=== PATIENT | female | born 1995 ===

== ENCOUNTER 2017-06-21 01:23 | Emergency (ER) | payer OTHER ==
[2017-06-21 04:43] LABS: ABS Basophils 0 10^3/ul (0-0.2); ABS Eosinophils 0 10^3/ul (0-0.6); ABS Lymphocytes 0.8 10^3/ul (1.0-4.8); ABS Monocytes 0.4 10^3/ul (0-0.8); ABS Neutrophils 12.4 10^3/ul (1.5-7.7); ABS Nucleated RBC 0 10^3/ul; Eosinophil % 0.4 % (0-6); Hematocrit 40 % (35-47); Hemoglobin 13.3 g/dl (12.0-16.0); Lymphocyte % 5.5 % (25-47); Mean Corpuscular HGB Conc 34 g/dl (31-36); Mean Corpuscular Hemoglobin 29 pg (27-31); Mean Corpuscular Volume 87 fL (80-97); Mean Platelet Volume 8 um3 (7.4-10.4); Nucleated Red Blood Cells % 0; Platelet Count 242 10^3/ul (150-450); Red Blood Count 4.58 10^6/ul (4.0-5.4); Red Cell Distribution Width 13 % (10.5-15); White Blood Count 13.7 10^3/ul (3.5-10.8)
[2017-06-21 05:02] LABS: EGFR Non-African American 135.2 (>60)
[2017-06-21 05:13] LABS: Urine Appearance Cloudy; Urine Blood Negative (Negative); Urine Color Yellow; Urine Ketones 2+ (Negative); Urine Protein 1+(30 mg/dL) (Negative); Urine Specific Gravity 1.027 (1.010-1.030); Urine Urobilinogen Negative (Negative)
[2017-06-21] MEDS ORDERED: Ciprofloxacin TAB* 500 MG PO ONE (05:38)
[2017-06-21] MEDS ORDERED: metroNIDAZOLE TAB* 250 MG PO ONE (05:39)
[2017-06-21] MEDS ORDERED: NS 0.9% 1000 ML* 2,000 ML IV ONE (05:42)
[2017-06-21 07:35] VITALS: BP 102/64
--- NOTE | 2017-06-25 21:08 | ED ---
Rodrick Arredondo Tecjoon, scribed for Nathan Brewster MD on 06/21/17 at 0524 . GI/ HPI - HPI Summary HPI Summary: This patient is a 21 year old female [facility] friends with a chief complaint of nausea, vomiting, diarrhea since 3 hours ago. Patient states that she thinks it may be food poisoning as sx appeared suddenly around 30 minutes after eating. Afterwards, patient started vigorously vomiting, patient states out of both ends. After coming to ED, sx have been alleviated and she feels slightly better. The pain is rated 3/10 in severity. Symptoms aggravated by nothing. Symptoms alleviated by nothing. Patient additionally reports abd discomfort - History of Current Complaint Chief Complaint: EDNauseaVomitDiarrh Stated Complaint: VOMITING Hx Obtained From: Patient Onset/Duration: Started Hours Ago, Still Present Timing: Constant Severity: Severe Current Severity: Mild Pain Intensity: 3 - /10 Location of Pain: Diffuse Pain Characteristics: Other: - "discomfort" Associated Signs and Symptoms: Positive: Other: - abd pain Aggravating Factor(s): Nothing Alleviating Factor(s): Nothing - Allergy/Home Medications Allergies/Adverse Reactions: Allergies Allergy/AdvReac Type Severity Reaction Status Date / Time No Known Allergies Allergy Verified 06/21/17 01:33 PMH/Surg Hx/FS Hx/Imm Hx Previously Healthy: Yes Opthamlomology History: Denies: Hx Legally Blind EENT History: Denies: Hx Deafness Infectious Disease History: No Infectious Disease History: Reports: Traveled Outside the [place] in Last 30 Days - [place] - Social History Alcohol Use: Rare Substance Use Type: Reports: None Smoking Status (MU): Never Smoked Tobacco Review of Systems Negative: Fever Positive: Abdominal Pain, Vomiting, Diarrhea, Nausea All Other Systems Reviewed And Are Negative: Yes Physical Exam - Summary Physical Exam Summary: Appearance: Well-appearing, Well-nourished Skin: Warm Eyes: Normal ENT: Normal Neck: Supple, nontender Respiratory: Clear to auscultation Cardiovascular: Normal S1, S2. No murmurs. Normal distal pulses in tibial and radial bilaterally. Abdomen: Soft, nontender Musculoskeletal: Normal, Strength/ROM Intact Neurological: Normal, A&Ox3 Psychiatric: Normal Triage Information Reviewed: Yes Vital Signs On Initial Exam: Initial Vitals Temp Pulse Resp BP Pulse Ox 98.3 F 112 16 110/69 100 06/21/17 01:33 06/21/17 01:33 06/21/17 01:33 06/21/17 01:33 06/21/17 01:33 Vital Signs Reviewed: Yes Diagnostics - Vital Signs Vital Signs Temp Pulse Resp BP Pulse Ox 06/21/17 01:33 98.3 F 112 16 110/69 100 - Laboratory Lab Results: Lab Results 06/21/17 06/21/17 06/21/17 Range/Units 04:15 04:15 04:37 WBC 13.7 H (3.5-10.8) 10^3/ul RBC 4.58 (4.0-5.4) 10^6/ul Hgb 13.3 (12.0-16.0) g/dl Hct 40 (35-47) % MCV 87 (80-97) fL MCH 29 (27-31) pg MCHC 34 (31-36) g/dl RDW 13 (10.5-15) % Plt Count 242 (150-450) 10^3/ul MPV 8 (7.4-10.4) um3 Neut % (Auto) 90.8 H (38-83) % Lymph % (Auto) 5.5 L (25-47) % [place] % (Auto) 3.2 (1-9) % Eos % (Auto) 0.4 (0-6) % Baso % (Auto) 0.1 (0-2) % Absolute Neuts (auto) 12.4 H (1.5-7.7) 10^3/ul Absolute Lymphs (auto) 0.8 L (1.0-4.8) 10^3/ul Absolute Monos (auto) 0.4 (0-0.8) 10^3/ul Absolute Eos (auto) 0 (0-0.6) 10^3/ul Absolute Basos (auto) 0 (0-0.2) 10^3/ul Absolute Nucleated RBC 0 10^3/ul Nucleated RBC % 0 Sodium 135 (133-145) mmol/L Potassium 3.7 (3.5-5.0) mmol/L Chloride 105 (101-111) mmol/L Carbon Dioxide 23 (22-32) mmol/L Anion Gap 7 (2-11) mmol/L BUN 11 (6-24) mg/dL Creatinine 0.57 (0.51-0.95) mg/dL Est GFR ( Amer) 173.9 (>60) Est GFR (Non-Af Amer) 135.2 (>60) BUN/Creatinine Ratio 19.3 (8-20) Glucose 104 H (70-100) mg/dL Calcium 9.3 (8.6-10.3) mg/dL Total Bilirubin 0.70 (0.2-1.0) mg/dL AST 12 L (13-39) U/L ALT 12 (7-52) U/L Alkaline Phosphatase 31 L (34-104) U/L C-Reactive Protein 1.14 (< 5.00) mg/L Total Protein 6.7 (6.4-8.9) g/dL Albumin 4.1 (3.2-5.2) g/dL Globulin 2.6 (2-4) g/dL Albumin/Globulin Ratio 1.6 (1-3) Beta HCG, Quant < 0.60 mIU/mL Urine Color Yellow Urine Appearance Cloudy Urine pH 5.0 (5-9) Ur Specific [place] 1.027 (1.010-1.030) Urine Protein 1+(30 mg/dl) H (Negative) Urine Ketones 2+ H (Negative) Urine Blood Negative (Negative) Urine Nitrate Negative (Negative) Urine Bilirubin Negative (Negative) Urine Urobilinogen Negative (Negative) Ur Leukocyte Esterase 1+ H (Negative) Urine WBC (Auto) Trace(0-5/hpf) (Absent) Urine RBC (Auto) 1+(3-5/hpf) H (Absent) Ur Squamous Epith Cells Present H (Absent) Urine Bacteria Absent (Absent) Urine Glucose Negative (Negative) Result Diagrams: 06/21/17 04:15 06/21/17 04:15 Lab Statement: Any lab studies that have been ordered have been reviewed, and results considered in the medical decision making process. GIGU Course/Dx - Course Assessment/Plan: seen to have elevated WBC, exam benign, vitals improved after hydration. started on empiric abx, instructed to fu with pmd. agrees to and understands dc instructions - Diagnoses Provider Diagnoses: Diarrhea, Dehydration Discharge - Discharge Plan Condition: Improved Disposition: HOME Prescriptions: Ciprofloxacin TAB* [Cipro 500 MG TAB*] 500 mg PO BID #10 tab metroNIDAZOLE TAB* [Flagyl 250 mg TAB*] 250 mg PO TID #15 tab Patient Education Materials: Gastroenteritis (DC) Referrals: [facility] [Provider Group] [facility] [Primary Care Provider] - Additional Instructions: PLEASE RETURN IMMEDIATELY TO THE ER IF YOU HAVE ANY WORSENING OR CONCERNING SYMPTOMS PLEASE MAKE AN APPOINTMENT TO BE SEEN BY YOUR PRIMARY CARE DOCTOR WITHIN 1 WEEK The documentation as recorded by the Rodrick jiang Tecjoon accurately reflects the service I personally performed and the decisions made by me, Nathan Brewster MD.
== END 2017-06-21 07:34 | disposition home or self-care (01) ==
LOC: EDBD → ED 01:23
DX: E86.0 Dehydration (principal); R19.7 Diarrhea, unspecified
CPT/HCPCS: 36415; 80053; 81003; 81015; 84702; 85025; 86140; 87086; 96360; 99283; A9270-GY